=== PATIENT | male | born 1940 | race Caucasian/White ===

== ENCOUNTER 2018-08-14 19:13 | Emergency (ER) | payer MEDICARE ==
[~2018-08-14] VITALS: Ht 172.7 cm; Wt 122.5 kg
--- OUTSIDE RECORDS SUMMARY | 2018-08-14 19:16 | XMS REPORT | Clinical Summary ---
Author Author [facility] Address Unknown Phone Unavailable Care Team Providers Care Helper Coordinator Name Role Phone Nic Card MD PCP Unavailable Allergies No Known Allergies Medications End Date Status Medication Sig Dispensed Refills Start Date Active amLODIPine (NORVASC) 5 MG Take 5 mg by 0 tablet mouth daily. Active quinapril-hydrochlorothia Take 1 tablet 0 zide (ACCURETIC) 20-12.5 by mouth mg per tablet daily. Active metoprolol (LOPRESSOR) 25 Take 25 mg by 0 MG tablet mouth 2 (two) times daily. 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 Last Filed Vital Signs Not on file Plan of Treatment Not on file Implants Device Identifier Shelf Expiration Date Model / Serial / Lot Implanted Type Area Manufactur er 06/05/2017 4301-02 / / [id number] Seprafilm Mp Harris 5x6in 4301-02 IMPLANTS N/A: Abdomen GENZYME - [id number] YAMILETH: Implanted: Qty: 2 on 09/27/2015 by BIO-SURG Sly Diaz MD Results Not on fileafter 08/13/2017 Insurance Payer Benefit Subscriber ID Type Phone Address Plan / Group [employer] K[employer]ARE xxxxxxxxxxx MEDICARE ADV [employer] - MGD UN xxxxxxxxx CARE COMMERCIAL HEALTHCARE INDEMNITY Advance Directives For more information, please contact: [address] [address] Date Inactivated Comments Code Status Date Activated 04/07/2016 1:18 PM Full Code 04/05/2016 7:26 AM This code status was determined by: Patient 10/01/2015 3:27 PM Full Code 09/27/2015 9:11 AM This code status was determined by: Patient
[2018-08-14] MEDS ORDERED: FAMOTIDINE 20 MG/2 ML VIAL IV STA (19:29)
[2018-08-14] MEDS ORDERED: METHYLPREDNISOLONE SOD SUCC 125 MG/2ML VIAL IV ONE (19:30)
[2018-08-14] MEDS ORDERED: DIPHENHYDRAMINE HCL INJ 50 MG/ML VIAL IV ONE (19:30)
[2018-08-14] MEDS ORDERED: ALBUTEROL/IPRATROPIUM 3 ML NEB NEB STA (19:40)
--- NOTE | 2018-08-14 20:16 | Diagnostic Imaging Report ---
EXAMINATION: Chest PA and lateral views INDICATION: Allergic reaction. Low oxygen saturation. ^[id number] ^1999 COMPARISON: None FINDINGS: TUBES and LINES: None. LUNGS: Bibasilar subsegmental atelectasis. There is no evidence of pneumonia or pulmonary edema. PLEURA: No pleural effusion or pneumothorax. HEART AND MEDIASTINUM: The cardiomediastinal silhouette is mildly enlarged. BONES AND SOFT TISSUES: No acute osseous lesion. Soft tissues are unremarkable. UPPER ABDOMEN: No free air under the diaphragm. IMPRESSION: No acute thoracic abnormality. Signed by: Dr. Julian Bailey M.D. on 08/14/2018 8:12 PM
[2018-08-14 20:24] VITALS: BP 148/73
== END 2018-08-14 20:30 | disposition home or self-care (01) ==
LOC: ER 19:13 → FSED 20:30
DX: T78.3XXA Angioneurotic edema, initial encounter (principal); I10 Essential (primary) hypertension; E11.9 Type 2 diabetes mellitus without complications; Z85.038 Personal history of other malignant neoplasm of large intestine; Z85.46 Personal history of malignant neoplasm of prostate
CPT/HCPCS: 71046; 80048; 85025; 99284; J1200; J2930

== ENCOUNTER → 2018-09-30 | Emergency (ER) | payer MEDICARE ==
[~2018-09-30] VITALS: Ht 172.7 cm; Wt 122.5 kg
[~2018-09-30] MED LIST: KEFLEX500 MG PO
--- OUTSIDE RECORDS SUMMARY | 2018-09-30 09:01 | XMS REPORT | Clinical Summary ---
Author Author [facility] Address Unknown Phone Unavailable Care Team Providers Care Spot Man Name Role Phone Nic Card MD PCP [...] Area Manufactur er 06/05/2017 4301-02 / / [id number] Seprafilm Mp Harris 5x6in 430- IMPLANTS N/A: Abdomen GENZYME - [id number] YAMILETH: Implanted: Qty: 2 on 09/27/2015 by BIO-SURG Sly Diaz MD Results Not on fileafter 09/29/2017 Insurance Payer Benefit Subscriber ID Type Phone Address Plan / Group [employer] K[employer]ARE xxxxxxxxxxx MEDICARE ADV [employer] - MGD UN xxxxxxxxx CARE COMMERCIAL HEALTHCARE INDEMNITY Advance Directives For more information, please contact: [address] [address] Date Inactivated Comments Code Status Date Activated 04/07/2016 1:18 PM Full Code 04/05/2016 7:26 AM This code status was determined by: Patient 10/01/2015 3:27 PM Full Code 09/27/2015 9:11 AM This code status was determined by: Patient
--- OUTSIDE RECORDS SUMMARY | 2018-09-30 09:01 | XMS REPORT ---
Author [facility] Address Unknown Phone Unavailable Care Team Providers Care Pharmaceutical Officer Name Role Phone TANGELA KLEIN Unavailable Unavailable Problems This patient has no known problems. Allergies, Adverse Reactions, Alerts This patient has no known allergies or adverse reactions. Medications This patient has no known medications. Results Test Description Test Time Test Comments Text Results Atomic Results Result Comments [facility] 2018-08-14 20:11:00 [place] [address] Patient Name: NADER HERNÁNDEZ MR #: [id number] : 1940 Age/Sex: 78/M Req #: [id number] Adm Physician: Ordered by: TANGELA KLEIN MD Report #: [id number] Location: [facility] Room/Bed: Procedure: [id number] HOPD/CXR 2 VIEW - [facility] Exam Date: 08/14/18 Exam Time: 1999 REPORT STATUS: Signed EXAMINATION: Chest PA and lateral views INDICAT ION: Allergic reaction. Low oxygen saturation. [id number] COMPARISON: None FINDINGS: TUBES and LINES: None. LUNGS: Bibasilar subsegmental atelectasis. There is no evidence of pneumonia or pulmonary edema. PLEURA: No pleural effusion or pneumothorax. HEART AND MEDIASTINUM: The cardiomediastinal silhouette is mildly enlarged. BONES AND SOFT TISSUES: No acute osseous lesion. Soft tissues are unremarkable. UPPER ABDOMEN: No free air under the diaphragm. IMPRESSION: No acute thoracic abnormality. Signed by: Dr. Julian Khan M.D. on 08/14/2018 8:12 PM Dictated By: MELVA MARTINEZ MD, MD 11 Transcribed By: BRAN on 08/14/182011 COPY TO: TANGELA KLEIN MD
--- NOTE | 2018-09-30 10:12 | Diagnostic Imaging Report ---
Exam: Right hand 3 views History: Pain Comparison: None. Findings: No fracture or malalignment. Narrowing of the interphalangeal joints, third metacarpal phalangeal joint, and first CMC joint. No abnormal soft tissue calcification or soft tissue defect. Impression: No acute osseous abnormality Degenerative arthrosis of the hand Signed by: Dr. Colten Cannon M.D. on 09/30/2018 10:08 AM
--- NOTE | 2018-09-30 10:13 | Diagnostic Imaging Report ---
Exam: Left foot 3 views History: Pain Comparison: None. Findings: No fracture or malalignment. Joint spaces preserved. No abnormal soft tissue calcification or soft tissue defect. Impression: No acute osseous abnormality Signed by: Dr. Colten Cannon M.D. on 09/30/2018 10:09 AM
== END | disposition home or self-care (01) ==
LOC: FSED 09:00
DX: S61.411A Laceration without foreign body of right hand, initial encounter (principal); M79.672 Pain in left foot; W01.0XXA Fall on same level from slipping, tripping and stumbling without subsequent striking against object, initial encounter; Y92.007 Garden or yard of unspecified non-institutional (private) residence as the place of occurrence of the external cause; I10 Essential (primary) hypertension; E11.9 Type 2 diabetes mellitus without complications
CPT/HCPCS: 99284

== ENCOUNTER 2018-10-19 08:01 | Emergency (ER) | payer MEDICARE ==
[~2018-10-19] VITALS: Ht 172.7 cm; Wt 122.5 kg
--- OUTSIDE RECORDS SUMMARY | 2018-10-19 08:03 | XMS REPORT | Clinical Summary ---
Author Author [facility] Address Unknown Phone Unavailable Care Team Providers Care Powdered Metal Supervisor Name Role Phone Nic Card MD PCP [...] Area Manufactur er 06/05/2017 4301-02 / / [id number] Seprafilm Mp Harris 5x6in 4301-02 IMPLANTS N/A: Abdomen GENZYME - [id number] YAMILETH: Implanted: Qty: 2 on 09/27/2015 by BIO-SURG Sly Diaz MD Results Not on fileafter 10/18/2017 Insurance Payer Benefit Subscriber ID Type Phone Address Plan / Group [employer] K[employer]CARE xxxxxxxxxxx MEDICARE ADV [employer] - MGD UN xxxxxxxxx CARE COMMERCIAL HEALTHCARE INDEMNITY Advance Directives For more information, please contact: [address] [address] Date Inactivated Comments Code Status Date Activated 04/07/2016 1:18 PM Full Code 04/05/2016 7:26 AM This code status was determined by: Patient 10/01/2015 3:27 PM Full Code 09/27/2015 9:11 AM This code status was determined by: Patient
[2018-10-19] MEDS ORDERED: PREDNISONE 20 MG TAB PO ONE (08:30)
== END 2018-10-19 08:36 | disposition home or self-care (01) ==
LOC: FSED 08:01
DX: R05 Cough (principal); J20.8 Acute bronchitis due to other specified organisms
CPT/HCPCS: 99282; J7512

== ENCOUNTER 2019-05-15 10:45 | Emergency (ER) | payer MEDICARE ==
[~2019-05-15] VITALS: Ht 172.7 cm; Wt 127.0 kg
--- NOTE | 2019-05-15 11:44 | Diagnostic Imaging Report ---
Chest, 1 view, 05/15/2019. History: Cough and congestion. Comparison: 08/14/2018. Findings: The cardiac silhouette is enlarged but the pulmonary vasculature is within normal limits for a portable exam. There is no focal consolidation or pleural effusion. There are no acute osseous or soft tissue abnormalities. Impression: Mild cardiomegaly without acute pulmonary abnormality. Signed by: Arthur Rios on 05/15/2019 11:40 AM
[2019-05-15] MEDS ORDERED: FUROSEMIDE INJ 10 MG/ML 4 ML VIAL IV ONE (12:15)
[2019-05-15 19:44] VITALS: BP 141/76
== END 2019-05-15 13:00 | disposition left against medical advice (07) ==
LOC: FSED 10:45
DX: I11.0 Hypertensive heart disease with heart failure (principal); I50.21 Acute systolic (congestive) heart failure; E11.9 Type 2 diabetes mellitus without complications; J20.9 Acute bronchitis, unspecified; E78.5 Hyperlipidemia, unspecified; Z85.038 Personal history of other malignant neoplasm of large intestine; Z85.46 Personal history of malignant neoplasm of prostate
CPT/HCPCS: 71045; 80053; 83880; 84484; 85025; 85379; 93005; 96374; 99284; J1940